=== PATIENT | female | born 1980 | race Caucasian/White ===

== ENCOUNTER 2016-07-27 00:35 | Emergency (ER) | payer BC, OTHER ==
[2016-07-27 01:48] VITALS: BP 127/71
== END 2016-07-27 01:48 | disposition home or self-care (01) ==
LOC: ED 00:35
DX: G44.209 Tension-type headache, unspecified, not intractable (principal); G43.909 Migraine, unspecified, not intractable, without status migrainosus; R03.0 Elevated blood-pressure reading, without diagnosis of hypertension; M54.2 Cervicalgia; F32.9 Major depressive disorder, single episode, unspecified; Z88.8 Allergy status to other drugs, medicaments and biological substances
CPT/HCPCS: 20552; J2001